=== PATIENT | female | born 1965 | race Caucasian/White ===

== ENCOUNTER 2017-03-17 17:08 | Emergency (ER) | payer OTHER ==
[~2017-03-17] VITALS: Ht 162.6 cm; Wt 48.5 kg
[~2017-03-17 17:08] MED LIST: ALENDRONATE SOD35 MG PO; ALPRAZOLAM0.25 M2 PO; CIPRO500 MG PO; Calcium Carbonate,Ca PO; DILAUDID2 MG PO; DURAGESIC25 MCG TD; ERGOCALCIF50000 UNIT PO; FOSAMAX35 MG PO; FOSAMAX5 MG PO; HYDROCODON-ACE1 EAC5 PO; HYDROCODON-ACE1 EAC7 PO; KLOR-CON M2020 MEQ PO; LORTAB 10-3251 EACH PO; LYRICA50 MG PO; LYRICA75 MG PO; PRILOSEC20 MG PO; TIZANIDINE HCL2 MG PO; TUMS FRESHERS200 MG PO; VENTOLIN HFA18 GM IH; VISINE MOISTURI30 ML BOTH EYES; VITAMIN D10000 UNIT PO; ZANTAC 2525 MG PO; ZANTAC150 MG PO; ZOFRAN ODT4 MG PO; ZOFRAN4 MG PO
[2017-03-17] MEDS ORDERED: NEURONTIN100 MG PO (18:47)
[2017-03-17] MEDS ORDERED: MORPHINE SULFAT30 M5 PO (18:48)
[2017-03-17] MEDS ORDERED: NIFEDIPINE ER30 MG PO (18:48)
[2017-03-17 20:05] VITALS: BP 124/90
== END 2017-03-17 20:07 | disposition home or self-care (01) ==
LOC: EME 17:08
DX: S83.92XA Sprain of unspecified site of left knee, initial encounter (principal); W01.0XXA Fall on same level from slipping, tripping and stumbling without subsequent striking against object, initial encounter; Y92.512 Supermarket, store or market as the place of occurrence of the external cause; K21.9 Gastro-esophageal reflux disease without esophagitis; B19.20 Unspecified viral hepatitis C without hepatic coma; F17.200 Nicotine dependence, unspecified, uncomplicated; Z91.041 Radiographic dye allergy status
CPT/HCPCS: 73564; 99281; 99284

== ENCOUNTER → 2017-11-11 | Outpatient (CLI) | payer OTHER ==
[~2017-11-11] VITALS: Ht 162.6 cm; Wt 45.4 kg
[~2017-11-11] MED LIST changes: +AVENTYL,PAMELOR10 MG PO; +FORTEO2.4 ML SC; +FORTEO20 MICROGR SC; +MORPHINE SULFAT30 M5 PO; +NEURONTIN100 MG PO; +NIFEDIPINE ER30 MG PO; +OXYCODONE HCL10 MG PO; +SINGULAIR10 MG PO; +XANAX0.25 MG PO
== END | disposition home or self-care (01) ==
LOC: AMB 09:12
PROC: 0DBK8ZX Excision of Ascending Colon, Via Natural or Artificial Opening Endoscopic, Diagnostic (ICD-10-PCS; principal; 2017-11-11)
DX: D12.2 Benign neoplasm of ascending colon (principal); K64.8 Other hemorrhoids
CPT/HCPCS: 88305; J2250; J3010